=== PATIENT | female | born 1955 | race African-American/Black ===

== ENCOUNTER 2022-09-17 09:37 | Emergency (ER) | payer MEDICARE ==
[~2022-09-17] VITALS: Ht 154.9 cm; Wt 67.0 kg
[2022-09-17 09:53] VITALS: O2SAT 98
[2022-09-17] MEDS ORDERED: SUMATRIPTAN SUCCINATE 6MG/0.5ML VIAL SUBCUT ONE (11:45)
[2022-09-17] MEDS ORDERED: TRAMADOL 50MG TABLET PO ONE (11:45)
[2022-09-17] MEDS ORDERED: SUMATRIPTAN SUCCINATE 6MG/0.5ML VIAL SUBCUT SCH (11:50)
[2022-09-17] MEDS ORDERED: HYDROCODONE/ACETAMINOPHEN 5/325MG TABLET PO ONE (13:15)
[2022-09-17] MEDS ORDERED: SUMA100T MT (15:45)
[2022-09-17] MEDS ORDERED: NAPR500T7 MT (15:46)
[2022-09-17 16:00] VITALS: BP 131/65; PULSE 86; RESP 18; TEMP 98.1
== END 2022-09-17 16:01 | disposition home or self-care (01) ==
LOC: ER 09:37
DX: G43.909 Migraine, unspecified, not intractable, without status migrainosus (principal); R11.2 Nausea with vomiting, unspecified
CPT/HCPCS: 70450; 96372; 99285; J3030